=== PATIENT | female | born 1950 | race Caucasian/White ===

== ENCOUNTER 2016-11-29 21:49 | Observation (INO) | payer BC, MEDICARE ==
[2016-11-29 22:13] VITALS: BMI 29.8
--- NOTE | 2016-11-29 22:16 | EDPRACDOC ---
- General Information Stated Complaint: TACHYCARDIA/SHOB Time Seen by Provider: 11/29/16 22:13 Information Source: Patient, Family Mode of Arrival: Car Home Medications: Home Medications Naproxen 500 mg PO BID PRN 03/03/14 Sumatriptan Succinate 100 mg PO DAILY PRN 03/03/14 Atorvastatin Calcium [Lipitor] 10 mg PO DAILY 08/10/14 Metoprolol Tartrate 50 mg PO DAILY 08/10/14 Albuterol Sulfate [Proair Hfa] 2 puff INH DAILY PRN 01/12/16 Duloxetine [Cymbalta] 30 mg PO DAILY 01/12/16 Topiramate 25 mg PO HS 01/12/16 Zolpidem Tartrate 10 mg PO QHS PRN 01/12/16 Aspirin/Acetaminophen/Caffeine [Goody's Ex-Str Powder Pkt (325/500/65mg)] 1 garcia PO Q4-6H PRN 11/29/16 Pyridoxine HCl [Vitamin B-6] 50 mg PO DAILY 11/29/16 Allergies/Adverse Reactions: Allergies Allergy/AdvReac Type Severity Reaction Status Date / Time clarithromycin [From Biaxin] Allergy Confusion Verified 11/29/16 22:30 - History of Present Illness Onset: 1800 HPI: H/O TACHYCARDIA. STARTED AT 1800. FEELS NAUSEATED WITH STANDING. THIS IS THE WORST EPISODE SHE HAS EVER HAD. FELT LIKE SHE WAS HAVING A HEART ATTACK, LAST EPISODE WAS 6 MONTHS AGO. DID NOT TAKE HER METOPROLOL TODAY. PAIN IN CHEST LIKE HEART BEATING OUT OF CHEST, SORE. WORSE WITH STANDING. NEVER HAD THE NAUSEA AND NEAR SYNCOPE. TOOK ASPIRIN TODAY OVER 300 MG FOR HEADACHE. NONSMOKER. NO RECENT SURGERY. TAKES MEDS FOR CHOLESTEROL. NO STRESS OR CATH. ED Past Medical History - History Reviewed Yes Nurses notes reviewed and agree except as marked - Patient Medical History Cardiac History: Reports: Hypertension, Hypercholesterolemia GI/ History: Reports: Urinary Tract Infection Psychological History: Reports: Anxiety Systemic History: Reports: Cancer (right BREAST) Surgical History: Reports: Appendectomy, Cholecystectomy Date of Last Radiation Treatment: 2009 Date of Last Chemotherapy Date: 2009 - Social Medical History Smoking Status: Never smoker EDM Review of Systems - Review of Systems ROS Negative Except as Marked: Yes All systems reviewed and were negative except as marked Constitutional: No Symptoms Reported Eyes: No Symptoms Reported Respiratory: Shortness of Breath (WITH EXERTION) Cardiovascular: Chest Pain Gastrointestinal: Nausea - Physical Exam Constitutional: Alert (Awake), No apparent distress Oriented to: Time, Person, Place Last recorded Vital Signs: Last Vital Signs Temp Pulse 164 H 11/29/16 21:52 Resp 20 11/29/16 21:52 BP 116/66 11/29/16 21:52 Pulse Ox 99 11/29/16 21:52 Oxygen Pulse Oxygen Saturation 99 O2 Device Room Air Oxygen Flow Rate Fraction of Inspired Oxygen ( FIO2) - HEENT Head: Normal ( normocephalic) Eye Exam: Normal (PERRL, EOMI, Sclera white) Oropharynx: Normal (Pharynx:Moist without exudate,Gums-no swelling) Nose: No Symptoms Reported (septum midline) Neck: Normal (FROM, trachea at midline) - Respiratory/Cardiovascular Respiratory: Normal - CTA Cardiovascular: Tachycardia - GI Auscultation: Normal (NABS) Palpation: Normal (Soft,No rebound or guarding, non distended) Tenderness: Non tender Vizcarra's Sign: Negative - Musculoskeletal Back: Normal (Non-Tender) Extremities: Normal (Normal tone, Pulses 2+ No cyanosis or edema, FROM) - Integumentary Skin: Normal, Warm, Dry Lymphatics: Normal (no adenopathy) - Neurologic Memory Impaired: Normal Motor Function: Normal (Normal tone, Pulses 2+ No cyanosis or edema, FROM) Cranial Nerve: Normal (CN II-X11 intact sensation, strength 5/5) Cerebellar: Normal Mood Description: Normal Perception: Normal - Re-evaluation Re-evaluation 1 Re-evaluation Time: 22:28 PT CONVERTED TO NSR IN RATE IN 80'S DURING THE EXAM. - Results 11/29/16 22:21 11/29/16 22:21 - EKG EKG #1 Initial EKG Time: 21:52 -: Yes EKG interpreted by me Rate: bpm: 164 [place]: Normal Rhythm: ST Block: RBBB (INCOMPLETE) ST: Nonsp Comments: ABNORMAL EKG EKG #2 Initial EKG Time: 22:45 -: Yes EKG interpreted by me Rate: bpm: 78 [place]: Normal Rhythm: NSR Block: None Hypertrophy: None ST: Normal Comments: NORMAL EKG - Departure Yes I personally saw and evaluated the patient. Disposition: Admit IP To This Hospital Condition: Stable Final Diagnosis: Sinus tachycardia Chest pain Qualifiers: Chest pain type: unspecified Qualified Code(s): R07.9 - Chest pain, unspecified Prescriptions: No Action Naproxen 500 mg PO BID PRN PRN Reason: Headache Sumatriptan Succinate 100 mg PO DAILY PRN PRN Reason: Headache Metoprolol Tartrate 50 mg PO DAILY Atorvastatin Calcium [Lipitor] 10 mg PO DAILY Topiramate 25 mg PO HS Duloxetine [Cymbalta] 30 mg PO DAILY Zolpidem Tartrate 10 mg PO QHS PRN PRN Reason: insomnia Albuterol Sulfate [Proair Hfa] 2 puff INH DAILY PRN PRN Reason: Shortness Of Breath Pyridoxine HCl [Vitamin B-6] 50 mg PO DAILY Aspirin/Acetaminophen/Caffeine [Goody's Ex-Str Powder Pkt (325/500/65mg)] 1 garcia PO Q4-6H PRN PRN Reason: Pain Decision to Admit Time: 23:20 Decision to admit date: 11/29/16 Decision to admit: from ED - Physician Consulted Hospitalist Time Called: 23:20 Provider Called: Alvin Call Time Siebel Consultant Returned Call: 23:20
[2016-11-29 22:33] LABS: AUTOMATED BASOPHIL 0.7 % (0-2); AUTOMATED EOSINOPHIL 0.4 % (0-5); AUTOMATED MONOCYTE 5.2 % (3-10); AUTOMATED NEUTROPHIL 77.7 % (45-76); MPV 8.4 fL (7.4-10.4)
[2016-11-29 22:43] LABS: BLOOD UREA NITROGEN 17 MG/DL (7-17); CALCIUM 9.5 MG/DL (8.4-10.2); CALCULATED OSMOLALITY 275 MOs/Kg (270-290); CHLORIDE 103 mEq/L (98-107); GLUCOSE 132 MG/DL (70-99); SODIUM LEVEL 141 mEq/L (137-146); TOTAL PROTEIN 7.9 G/DL (6.3-8.2)
[2016-11-29 23:00] LABS: PARTIAL THROMB. TIME 23.7 SEC (22-35)
--- NOTE | 2016-11-29 23:17 | HISTPHYS ---
- Chief Complaint chest pain - History of Present Illness PRIMARY CARE PROVIDER: Dr. Mcdowell MACHINE SETTER: Dr. Maxwell HPI: The patient is a 66 yo woman who presents with tachycardia. Started at 6 pm. Forgot to take her medication this morning. Had nausea and dizziness. Could not walk from chair to door because she thought she was going to pass out. Had chest pressure starting this afternoon. Onset: this morning for the tachycardia. This afternoon for the chest pain. Duration: intermittent. Location: substernal. Radiation: Character: 8/10, pressure, heaviness. Alleviated by: Nothing. Exacerbated by: Standing. Associated Symptoms: Nausea. Could not get her breath when she had pressure in chest. Shortness of breath. [place] hot but no diaphoresis. Last week she had flu-like symptoms and congestion. Chest pain and palpitations. Severe joint pains over several months. Treatments: none at home except usual medications. - Medical History Cardiac History: Reports: Hypercholesterolemia, SVT (takes metoprolol for SVT not for hypertension). Denies: Hypertension GI/ History: Reports: Urinary Tract Infection Systemic History: Reports: Cancer (right BREAST 2008 lumpectomy. Chemo and radiation.) Neurological History: Reports: Migraine Psychological History: Reports: Anxiety - Surgical History Reports: Appendectomy, Cholecystectomy, Hysterectomy, Other (Right lumpectomy 2007.) - Medictions/Allergies Allergies clarithromycin [From Biaxin] Allergy (Verified 11/29/16 22:30) Confusion Current Medication List: Reviewed Home Medications Naproxen 500 mg PO BID PRN 03/03/14 Sumatriptan Succinate 100 mg PO DAILY PRN 03/03/14 Atorvastatin Calcium [Lipitor] 10 mg PO DAILY 08/10/14 Metoprolol Tartrate 50 mg PO DAILY 08/10/14 Albuterol Sulfate [Proair Hfa] 2 puff INH DAILY PRN 01/12/16 Duloxetine [Cymbalta] 30 mg PO DAILY 01/12/16 Topiramate 25 mg PO HS 01/12/16 Zolpidem Tartrate 10 mg PO QHS PRN 01/12/16 Aspirin/Acetaminophen/Caffeine [Goody's Ex-Str Powder Pkt (325/500/65mg)] 1 garcia PO Q4-6H PRN 11/29/16 Pyridoxine HCl [Vitamin B-6] 50 mg PO DAILY 11/29/16 - Family History Reports: Diabetes (Brother), Cancer (Mother: breast and either ovarian or uterine. Skin. Father: leukemia.), Stroke (Mother and brother), Cardiac Disorders (MGM and P uncle: [place].), Other (Mother at 94yo.) - Social History Smoking Status: Never smoker Social History: Denies: Alcohol Use, Substance Use Disorder - Review of Systems GENERAL: No Fever, chills, or diaphoresis. Positive for fatigue/malaise. HEENT: No ear pain or discharge. No nasal discharge or bleeding. No throat pain or swelling. No eye pain or eye redness. RESPIRATORY: Mild cough, wheezing, primarily last week. Brief shortness of breath but only with chest pain. CARDIOVASCULAR: Chest pain and palpitations. GI: Nausea. Brief abdominal discomfort resolved. No vomiting, diarrhea, constipation, or bloody stool. NEUROLOGICAL: No headache or focal weakness. INTEGUMENT: no rashes, itching, or lesions. LYMPHATIC SYSTEM: no lymph node swelling or pain. MUSCULOSKELETAL: no pain or joint swelling. GENITOURINARY: No dysuria or hematuria. ENDOCRINE: No polyuria or polydipsia. HEME: No chronic anemia, bleeding, or easy bruising. - Physical Exam Vital Signs: Initial Vitals Pulse Rate 164 H 11/29/16 21:52 Respiratory Rate 20 11/29/16 21:52 Blood Pressure 116/66 11/29/16 21:52 Pulse Oxygen Saturation 99 11/29/16 21:52 Vital Signs - 24 hr 11/29/16 11/29/16 11/29/16 21:52 22:13 22:28 Pulse Rate 164 H 132 H 82 Respiratory 20 20 20 Rate Blood Pressure 116/66 113/68 103/60 Pulse Oxygen 99 94 94 Saturation Weight: 83.9 kg Height: 5'6" BMI: 29.9 - Other Exam Other Exam Findings: GENERAL: Ill-appearing, well nourished, no acute distress. HEENT: Normocephalic, atraumatic; pupils equal and round. Nares patent, without discharge or bleeding. No oropharyngeal lesions or erythema. Mucous membranes are dry. NECK: is supple, no masses, trachea midline. RESPIRATORY: Clear to auscultation bilaterally. Chest wall movements are symmetric. No use of accessory muscles to breathe. No wheezing, rales, rhonchi. CARDIOVASCULAR: Normal S1, S2. Murmur 2/6 systolic. No rubs, or gallops. PMI non-displaced. Carotids: no carotid bruits. No bradycardia or tachycardia. DP pulses 2+ bilaterally. GI: soft, nontender, non-distended, normal active bowel sounds. No hepatosplenomegaly. INTEGUMENT: Clean, dry, and intact. No rashes. No lesions. MUSCULOSKELETAL: Moving all extremities. No cyanosis. No clubbing. Edema: none bilaterally. NEUROLOGICAL: Cranial nerves 2-12 grossly intact. Motor 5/5 throughout. Reflexes : 2+ bilaterally. Babinski: toes downgoing bilaterally. Intact Finger to nose. Sensory grossly intact to light touch. Intact rapid alternating movements bilaterally. No pronator drift. PSYCHIATRIC: Fully oriented. Normal and appropriate affect. LYMPHATIC: No cervical lymphadenopathy. No supraclavicular lymphadenopathy. - Lab Results Laboratory Results - last 24 hr 11/29/16 11/29/16 11/29/16 22:21 22:21 22:38 WBC 13.4 H RBC 4.86 Hgb 14.7 Hct 43.9 MCV 90 MCH 30.4 MCHC 33.6 RDW 14.4 Plt Count 304 MPV 8.4 Neut % (Auto) 77.7 H Lymph % (Auto) 16.0 L [place] % (Auto) 5.2 Eos % (Auto) 0.4 Baso % (Auto) 0.7 Absolute Neuts (auto) 10.32 H Absolute Lymphs (auto) 2.14 PT 10.3 INR 1.0 APTT 23.7 Sodium 141 Potassium 3.9 Chloride 103 Carbon Dioxide 20 L Anion Gap 22 H BUN 17 Creatinine 1.00 Estimated GFR (MDRD) 56 L Glucose 132 H Calculated Osmolality 275 Calcium 9.5 Total Bilirubin 0.8 AST 52 H ALT 55 H Alkaline Phosphatase 95 Troponin I 0.09 Wyk-N-Wnxbtchoefg Pept 440 Total Protein 7.9 Albumin 4.5 - Diagnostic Findings EK beats per minute. Normal sinus rhythm. Reviewed EKG personally. Chest x-ray, viewed personally: EXAM: PORTABLE CHEST 1 VIEW COMPARISON: 08/10/2014 FINDINGS: Normal heart size and mediastinal contours. No acute infiltrate or edema. No effusion or pneumothorax. No acute osseous findings. IMPRESSION: Negative portable chest. - Assessment (1) Chest pain R07.9 - CHEST PAIN, UNSPECIFIED Acute Present on Admission: Yes Qualifiers: Chest pain type: unspecified Qualified Code(s): R07.9 - Chest pain, unspecified Rule out myocardial infarction. Plan: Obtain cardiac enzymes x 3. Place patient on telemetry. Give patient oxygen, aspirin. Give nitroglycerin, and morphine as needed for chest pain. Give statin. Stress test has been ordered for the morning. Patient has been advised, if the stress test is negative, to follow up with the primary care provider for evaluation of other potential causes of the chest pain. (2) Sinus tachycardia R00.0 - TACHYCARDIA, UNSPECIFIED Acute Present on Admission: Yes Unable to capture patient's episode of tachycardia on the EKG. She does have known history of SVT and forgot to take her metoprolol this morning. Plan: Telemetry. Resume metoprolol. (3) Dizziness R42 - DIZZINESS AND GIDDINESS Acute Present on Admission: Yes May be multifactorial. Could be related to her episodes of tachycardia and palpitations earlier today. Plan: Telemetry. Monitor for any further dizziness. (4) Nausea R11.0 - NAUSEA Acute Present on Admission: Yes May be due to the tachycardia, angina, or other cause. Plan: Monitor. P.r.n. Zofran or Phenergan. (5) Palpitations R00.2 - PALPITATIONS Acute Present on Admission: Yes Likely due to her SVT. Plan: Telemetry.
--- NOTE | 2016-11-29 23:25 | DIRPT ---
CLINICAL DATA: Palpitations and chest pain EXAM: PORTABLE CHEST 1 VIEW COMPARISON: 08/10/2014 FINDINGS: Normal heart size and mediastinal contours. No acute infiltrate or edema. No effusion or pneumothorax. No acute osseous findings. IMPRESSION: Negative portable chest. Electronically Signed By: Nick Kitchen M.D. On: 11/29/2016 23:23
[2016-11-29] MEDS ORDERED: NITROGLYCERINE 0.4 MG TAB SL PRN (23:26)
[2016-11-29] MEDS ORDERED: TOPIRAMATE 25 MG PO SCH (23:30)
[2016-11-29] MEDS ORDERED: TOPIRAMATE 25 MG TABLET PO SCH (23:45)
[2016-11-29] MEDS ORDERED: ATORVASTATIN 10 MG TAB PO SCH (23:45)
[2016-11-29] MEDS ORDERED: ATORVASTATIN 40 MG TAB PO SCH (23:45)
[2016-11-30] MEDS ORDERED: SIMETHICONE 80 MG TAB PO PRN (00:55)
[2016-11-30] MEDS ORDERED: PROMETHAZINE 25 MG/ML VIAL IV PRN (00:55)
[2016-11-30] MEDS ORDERED: ACETAMINOPHEN 325 MG/TAB TABLET PO PRN (00:55)
[2016-11-30] MEDS ORDERED: TEMAZEPAM 15 MG CAP PO PRN (00:55)
[2016-11-30] MEDS ORDERED: ACETAMINOPHEN 325 MG SUPP PR PRN (00:55)
[2016-11-30] MEDS ORDERED: Docusate Sodium 100 MG CAP PO PRN (00:55)
[2016-11-30] MEDS ORDERED: BENZONATATE 100 MG PERLES PO PRN (00:55)
[2016-11-30] MEDS ORDERED: SENNA CONCENTRATE TAB PO PRN (00:55)
[2016-11-30] MEDS ORDERED: BISACODYL 5 MG TAB PO PRN (00:55)
[2016-11-30] MEDS ORDERED: ONDANSETRON HCL 4 MG/2 ML VIAL IV PRN (00:55)
[2016-11-30] MEDS ORDERED: GUAIFEN 100 MG-DEXTROMETH 10 MG PER 5 ML PO PRN (00:55)
[2016-11-30] MEDS ORDERED: ALBUTEROL 0.083% 3 ML NEB NEB PRN (00:57)
[2016-11-30] MEDS ORDERED: ENOXAPARIN 40 MG/0.4 ML PFS SQ SCH (01:00)
[2016-11-30] MEDS ORDERED: Pharmacy Order Set Alert SCH (01:00)
[2016-11-30] MEDS ORDERED: Vaccine Screening Complete SCH (02:00)
[2016-11-30 05:07] LABS: MPV 7.9 fL (7.4-10.4)
[2016-11-30 05:10] LABS: BLOOD UREA NITROGEN 14 MG/DL (7-17); CALC CORRECTED 9.5 MG/DL (8.4-10.2); CALCIUM 9.2 MG/DL (8.4-10.2); CALCULATED OSMOLALITY 272 MOs/Kg (270-290); CHLORIDE 105 mEq/L (98-107); GLUCOSE 103 MG/DL (70-99); LDL (calc.) 91.2 MG/DL (<100); SODIUM LEVEL 141 mEq/L (137-146); TOTAL PROTEIN 6.3 G/DL (6.3-8.2); VLDL (calc.) 10.8 MG/DL (5-40)
[2016-11-30] MEDS ORDERED: ASPIRIN 325 MG TAB PO SCH (08:00)
[2016-11-30] MEDS ORDERED: DULOXETINE 30 MG CAP PO SCH (09:00)
[2016-11-30] MEDS ORDERED: METOPROLOL TARTRATE 50 MG TAB PO SCH (09:00)
[2016-11-30] MEDS ORDERED: REGADENOSON 0.4 MG/5 ML SYRINGE IV ONE (10:00)
[2016-11-30] MEDS ORDERED: SODIUM CHLORIDE 0.9% 10 ML FLUSH FLUSH ONE (10:00)
[2016-11-30] MEDS ORDERED: SESTAMIBI 8 MCI V IV ONE (10:38)
[2016-11-30] MEDS ORDERED: PYRIDOXINE 50 MG TAB PO SCH (12:00)
[2016-11-30 12:31] VITALS: BP 106/61; TEMP 97.4
--- NOTE | 2016-11-30 14:06 | PCM.STRESS ---
REGADENOSON MYOCARDIAL PERFUSION STRESS TEST DATE OF PROCEDURE: 11/30/16 INDICATION: Chest pain-MO ruled out; pre-op eval ortho surgery RESTING DATA: HR 65 B/P 124/86 Chest clear Cor: Regular rhythm, 1/6 SAIRA RESTING EKG: Normal sinus essentially normal tracing PROTOCOL: Approx 8 mCi of technetium-99m pyrophosphate (Cardiolyte) was injected intravenously and tomograhic imaging performed at rest. An hour later, 0.4 mg of regadenoson was injected as an IV bolus, followed by an additional 25 mCi of Cardiolyte and tomographic imaging repeated. Heart rate camille to 94 per minute. BP remained stable in range of 128/86 Patient tolerated well. No chest pain. STRESS EKG: Rhythm: Sinus ST-T changes: None [No arrhythmias or pauses ] MYOCARDIAL PERFUSION IMAGING: Rotational display of raw projection data documents [stable pt position during imaging]. [There is a high right hemidiaphragm and prominent hepatic uptake]. There is a limited area of minimally decreased count density in the anterior wall and mid ventricular level, more prominent on rest than on stress imaging, likely representing mild breast attenuation artifact. No perfusion defects of significance are seen on rest or vasodilators stress. Gated imaging discloses normal wall thickening in all segments within normal end systolic volume of 12 mL and an ejection fraction of 70% IMPRESSION: (1) Functional capacity is not assessed (2) Normal resting left ventricular size and function, with end-systolic volume of 12 ml and ejection fraction of 70 %. (3) mild breast attenuation artifact (4) no significant perfusion defects-rest or vasodilators stress Negative pharmacologic perfusion stress test for potential ischemia.
--- NOTE | 2016-11-30 14:46 | PCM.DCS92 ---
- Final/Secondary Discharge Diagnosis (1) Chest pain Acute R07.9 - CHEST PAIN, UNSPECIFIED Present on Admission: Yes unspecified R07.9 - Chest pain, unspecified Comment: Heart rate stable in the 60s since admission. Stress test negative for ischemia (2) Dizziness Acute R42 - DIZZINESS AND GIDDINESS Present on Admission: Yes Comment: Likely related to tachycardia (3) Sinus tachycardia Acute R00.0 - TACHYCARDIA, UNSPECIFIED Present on Admission: Yes Comment: Chronic problem doing well on metoprolol. Improved once restarted (4) Palpitations Acute R00.2 - PALPITATIONS Present on Admission: Yes Comment: Continue metoprolol Discharge Disposition: Home Discharge Condition: Improved Cognitive Discharge Status: Unimpaired Fuctional Discharge Status: Independent Physician Follow up/Referrals: Mayelin Mcdowell MD [Primary Care Provider] - 12/09/16 2:40 pm Home Medications / New Prescriptions: New Metoprolol Succinate (XL) [Toprol Xl] 50 mg PO DAILY #30 tab Continue Naproxen 500 mg PO BID PRN PRN Reason: Headache Sumatriptan Succinate 100 mg PO DAILY PRN PRN Reason: Headache Atorvastatin Calcium [Lipitor] 10 mg PO DAILY Topiramate 25 mg PO HS Duloxetine [Cymbalta] 30 mg PO DAILY Zolpidem Tartrate 10 mg PO QHS PRN PRN Reason: insomnia Albuterol Sulfate [Proair Hfa] 2 puff INH DAILY PRN PRN Reason: Shortness Of Breath Pyridoxine HCl [Vitamin B-6] 50 mg PO DAILY Aspirin/Acetaminophen/Caffeine [Goody's Ex-Str Powder Pkt (325/500/65mg)] 1 garcia PO Q4-6H PRN PRN Reason: Pain Discontinued Metoprolol Tartrate 50 mg PO DAILY O2 Device: Room Air Diet at Discharge: Heart Healthy Activity: As Tolerated Call Office For: Worsening Symptoms - DC Summary Notes Hospital Course Note:: Discharge summary on patient named JUDI BARRIOS admitted to [facility] on 11/29/16 by Alvin Call MD. Date of discharge is []. Ms Barrios is a pleasant 66-year-old female with a history of SVT who presents to the hospital with complaint of palpitation and chest tightness. When she has similar symptoms she usually takes an extra dose of her metoprolol. Unfortunately she was away from home and did not have her medication. They drove home which took approximately 3 hours during which she continued to have tachycardia. Given the persistence of her symptoms and chest tightness she presented emergency room. She was given dose of metoprolol with improvement in her heart rate but had [place] zone troponins and was admitted to the hospital under chest pain center protocol. She underwent nuclear stress testing which was negative for any evidence of ischemia. Her heart rate has been stable since admission at this point she is stable to follow up with her primary physician as an outpatient. She has no other complaints and feels well. Total Time: 40 minutes - Physical Exam Vital Signs: Last Vital Signs Temp 97.4 F L 11/30/16 12:31 Pulse 63 11/30/16 12:31 Resp 17 11/30/16 12:31 BP 106/61 11/30/16 12:31 Pulse Ox 93 11/30/16 12:31 Oxygen Pulse Oxygen Saturation 93 O2 Device Nasal Cannula Oxygen Flow Rate 2 Fraction of Inspired Oxygen ( 2 FIO2) Constitutional: No apparent distress, Alert (Awake), Well nourished, Well appearing Oriented to: Time, Person, Place - HEENT Head: Normal ( normocephalic) Eye: Normal (PERRL, EOMI, Sclera white) Oropharynx: Normal (Pharynx:Moist without exudate,Gums-no swelling) Nose: No Symptoms Reported (septum midline) - Respiratory/Cardiovascular Respiratory: Normal - CTA Cardiovascular: Tachycardia - GI Auscultation: Normal (NABS) Palpation: Normal (Soft,No rebound or guarding, non distended) Tenderness: Non tender Vizcarra's Sign: Negative - Musculoskeletal Back: Normal (Non-Tender) Extremities: Normal (Normal tone, Pulses 2+ No cyanosis or edema, FROM) - Integumentary Skin: Normal, Warm, Dry Lymphatics: Normal (no adenopathy) - Neurologic Memory Impaired: Normal Motor Function: Normal Cranial Nerve: Normal Cerebellar: Normal Mood Description: Normal Perception: Normal
[2016-11-30 14:49] VITALS: PULSE 70
--- NOTE | 2016-12-01 15:33 | CAPUEKG ---
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
== END 2016-11-30 16:00 | disposition home or self-care (01) ==
LOC: ED 21:49 → EDINP 23:26 → PCU 11-30 01:22
PROVIDERS: ADMIT Internal Medicine; ATTEND Hospitalist
DX: R07.9 Chest pain, unspecified (principal); R42 Dizziness and giddiness; R00.0 Tachycardia, unspecified; R00.2 Palpitations; R11.0 Nausea; E78.00 Pure hypercholesterolemia, unspecified; F41.9 Anxiety disorder, unspecified; Z79.82 Long term (current) use of aspirin; Z79.899 Other long term (current) drug therapy; R06.02 Shortness of breath
CPT/HCPCS: 36415; 71010; 78452; 80053; 80061; 83880; 84484; 85025; 85027; 85610; 85730; 93005; 93017; 99284; A4216; A9500; G0378; J1650; J2785; J3490